=== PATIENT | male | born 1980 | race Caucasian/White ===

== ENCOUNTER 2018-06-09 17:56 | Emergency (ER) | payer OTHER ==
[~2018-06-09] VITALS: Ht 180.3 cm; Wt 81.0 kg
[2018-06-09 18:10] VITALS: Ht 180.3 cm; Wt 81.0 kg
[2018-06-09] MEDS ORDERED: SOD CHLORIDE 0.9% 1,000 ML IV STA (18:27)
[2018-06-09] MEDS ORDERED: ONDANSETRON 4 MG INJ IV STA (18:27)
[2018-06-09] MEDS ORDERED: ONDA8TAB9 PO (18:57)
--- NOTE | 2018-06-09 18:57 | ERD ---
ER Documentation Chief Complaint Chief Complaint smoked marijuana started vomiting 3 times HPI This is a 38-year-old male with no significant past medical history who is presenting with lightheadedness, nausea, a few episodes of nonbilious nonbloody vomiting, starting shortly after ingesting honey oil with THC. The patient currently endorses nausea and feeling generally unwell. He reports a tingling sensation to his hands and feet and feels anxious. The patient denies feeling sick recently. The patient denies fever or chills. The patient has had no headache or vision changes. The patient does not endorse neck or back pain. The patient denies dizziness. The patient has had no chest pain or trouble breathing. The patient denies abdominal pain. The patient denies changes to bowel movements or urination. The patient has had no focal deficits. The patient has had no weakness or numbness or tingling to the face or extremities. ROS All systems reviewed and are negative except as per history of present illness. Allergies Allergies: Coded Allergies: No Known Allergy (Unverified , 06/09/18) PMhx/Soc Medical and Surgical Hx: pt denies Medical Hx, pt denies Surgical Hx History of Surgery: No Anesthesia Reaction: No Hx Neurological Disorder: No Hx Respiratory Disorders: No Hx Cardiac Disorders: No Hx Psychiatric Problems: No Hx Miscellaneous Medical Probl: No Hx Alcohol Use: No Hx Substance Use: No Hx Tobacco Use: No Smoking Status: Never smoker FmHx Family History: No diabetes Physical Exam Vitals Vital Signs Date Temp Pulse Resp B/P (MAP) Pulse Ox O2 O2 Flow FiO2 Time Delivery Rate 06/09/18 97.8 103 18 109/77 100 18:10 (88) Physical Exam Const: No apparent distress, well-developed, well-nourished Head: Normocephalic, Atraumatic Eyes: Normal Conjunctiva. Extraocular movements intact. Pupils equal, round and reactive to light ENT: Normal External Ears, Nose and Mouth. Neck: Full range of motion. No meningismus. Resp: Clear to auscultation bilaterally, No wheezes, rales or rhonchi Cardio: Regular rate and rhythm. No murmurs, rubs or gallops Abd: Soft, non tender, non distended. Normal bowel sounds Skin: No petechiae or rashes Back: No midline tenderness. No CVA tenderness Ext: No cyanosis, or edema Neur: Awake and alert, oriented 4. Cranial nerves intact. No facial droop. Normal strength, sensation and coordination. Psych: Anxious Results 24 hrs Current Medications Medications Dose Sig/Filippo Start Time Status Last (Trade) Ordered Route PRN Stop Time Admin Dose Reason Admin Sodium 1,000 ml @ Q1H STAT 06/09/18 Chloride 1,000 mls/hr IV 18:27 06/09/18 19:26 Ondansetron 4 mg ONCE STAT 06/09/18 DC HCl (Zofran IV 18:27 Inj) 06/09/18 18:35 Procedures/[facility] MDM The patient presents with symptoms most consistent with marijuana intoxication. I do not suspect an alternative emergent etiology. I doubt a metabolic emergency. I do not suspect a cardiopulmonary process. The patient has no focal deficits. I doubt a neurologic etiology. The patient is not dizzy. I do not suspect vertigo. I do not suspect thyroid disease. The patient's vital signs are unremarkable. I do not suspect an arrhythmia. TREATMENT/DISPOSITION The patient was treated with IV fluids and Zofran with improvement of his symptoms. DISCHARGE Upon reevaluation of the patient, symptoms have improved. No emergent diagnoses were identified. At this time, I feel that the patient stable for discharge. The patient was instructed to follow-up with a primary care physician in 1-3 days. The patient will be given strict precautions with which to return to the emergency department. Prescriptions: Zofran Disclaimer: Inadvertent spelling and grammatical errors are likely due to EHR/dictation software use and do not reflect on the overall quality of patient care. Note that the electronic time recorded on this note does not necessarily reflect the actual time of the patient encounter. Departure Diagnosis: Primary Impression: Marijuana intoxication Complication of substance-induced condition: uncomplicated Qualified Codes: F12.920 - Cannabis use, unspecified with intoxication, uncomplicated Additional Impressions: Nausea & vomiting Vomiting type: unspecified Vomiting Intractability: non-intractable Qualified Codes: R11.2 - Nausea with vomiting, unspecified Anxiousness Paresthesias Condition: Stable Patient Instructions: Anxiety Reaction, Marijuana Abuse, Nausea and Vomiting- Adult, Paraesthesias Additional Instructions: Thank you for for coming to [facility] for your care today. Please ask your nurse or provider if you have questions about your care today and do not leave until all your questions have been answered. Please use any medications given as directed and follow-up with your doctor (or the doctor you were referred to) in the next 1-3 days. If you do not have a primary care doctor you [place] [facility] [place] [facility] (listed below). You may also use motrin and tylenol as needed for fever and/or pain unless instruc [place] otherwise by your provider or nurse. Indications for more urgent follow-up have been discussed, but you may return to the Emergency Department at ANY time for any worrisome or worsening symptoms. If you have abdominal pain, please know that no test or exam you received is perfect and you should follow up within 8 hours for continued pain. If you had any imaging studies today, such as an X-Ray or CT Scan, these studies will be reviewed later by a radiologist. You will be called if there are important findings that were not identified today, so make sure the contact information you provided at registration is correct. If you received any narcotic pain control medicine today, such as Vicodin, Morphine or Dilaudid, your coordination and judgment may be affected for a number of hours. Please do not drive or operate heavy machinery, and you may want someone to assist you at home. If you were given a prescription for narcotic medication, be aware that it is very addictive- use sparingly and only if necessary. PLEASE SEEK FURTHER EVALUATION AND MANAGEMENT AT YOUR DOCTORS OFFICE WITHIN THE NEXT 1-3 DAYS. IT IS YOUR RESPONSIBILITY TO MAKE AN APPOINTMENT FOR FOLOW-UP CARE. IF YOU HAVE A PRIMARY DOCTOR, PLEASE CALL THEIR OFFICE TO SCHEDULE AN APPOINTMENT FOR FOLLOW UP. IF YOU DO NOT HAVE A PRIMARY DOCTOR YOU CAN CALL OUR PHYSICIAN REFERRAL HOTLINE AT IF YOU CAN NOT AFFORD TO SEE A PHYSICIAN YOU CAN CHOSE FROM THE FOLLOWING [facility]: [facility] [address] [facility] [address] [facility] [address] [facility] [facility] [address] [facility]. [facility] [address] [facility]. [facility]. [address] GABRIELA YEN MD Jun 09, 2018 18:57
[2018-06-09 20:24] VITALS: BP 122/78; PULSE 68; RESP 16
== END 2018-06-09 20:26 | disposition home or self-care (01) ==
LOC: E/R 17:56
DX: F12.920 Cannabis use, unspecified with intoxication, uncomplicated (principal); F41.9 Anxiety disorder, unspecified; R20.2 Paresthesia of skin; R40.2142 Coma scale, eyes open, spontaneous, at arrival to emergency department; R40.2362 Coma scale, best motor response, obeys commands, at arrival to emergency department; R40.2252 Coma scale, best verbal response, oriented, at arrival to emergency department
CPT/HCPCS: 96374; J2405; J7030; Z7502